=== PATIENT | male | born 1940 | race Caucasian/White ===

== ENCOUNTER → 2017-01-11 | Outpatient (CLI) | payer MEDICARE, OTHER ==
[~2017-01-11] MED LIST: ARIPIPRAZOLE5 MG PO; ASPIRIN EC81 MG PO; CELEXA20 MG PO; FLOMAX0.4 MG PO; GLUCOPHAGE500 MG PO; LOPRESSOR25 MG PO; NITROSTAT0.4 MG SL; PRILOSEC20 MG PO; ZOCOR40 MG PO
[2017-01-11 11:53] LABS: BLOOD UREA NITROGEN 13 mg/dL (6-24); CALCIUM 9.4 mg/dL (8.5-10.5); CHLORIDE 106 mMol/L (96-110); CO2 23 mMol/L (22-32); CREATININE 0.7 mg/dL (0.6-1.3); ESTIMATED GFR (MDRD EQUATION) > 60; SODIUM 138 mMol/L (135-145)
== END | disposition disaster alternative care site (69) ==
LOC: LNHI 11:37
PROVIDERS: Internal Medicine Interventional Cardiology
DX: R53.83 Other fatigue (principal); R06.00 Dyspnea, unspecified; R29.6 Repeated falls